=== PATIENT | female | born 1970 | race Caucasian/White ===

== ENCOUNTER 2019-10-17 08:12 | Outpatient (CLI) | payer OTHER, SELFPAY ==
--- NOTE | ~2019-10-17 | MM_ITS ---
EXAMINATION: MM screening [facility] BI w tre HISTORY: Screening mammogram TECHNIQUE: Craniocaudal and mediolateral oblique 3-D tomosynthesis images were obtained and synthetic 2-D images were generated. CAD analysis was submitted and interpreted. COMPARISON: 06/26/2014, 09/11/2012, 07/21/2010 BREAST PARENCHYMAL COMPOSITION: There are scattered areas of fibroglandular density. FINDINGS: There is no evidence of suspicious mass, calcification, or architectural distortion to sugg est malignancy in either breast. There has been no suspicious interval change. IMPRESSION: 1. No mammographic evidence of malignancy. 2. Recommend routine screening mammography in one year. BI-RADS Category 1: Negative Reviewed, dictated and finalized at location A.
== END 2019-10-17 08:13 | disposition home or self-care (01) ==
PROVIDERS: PCP Family Medicine; Visit Provider Family Medicine
DX: Z12.31 Encounter for screening mammogram for malignant neoplasm of breast (principal)
CPT/HCPCS: 77063; 77067

== ENCOUNTER 2020-07-16 08:47 | Outpatient (CLI) | payer OTHER, SELFPAY ==
[2020-07-16 09:05] LABS: Basophils Absolute Auto 0.04 K/mm3 (0.00-0.10); Basophils Percent Auto 0.7 % (0.0-1.0); Eosinophils Absolute Auto 0.09 K/mm3 (0.02-0.50); Eosinophils Percent Auto 1.5 % (1.0-6.0); Hematocrit 38.3 % (35.0-49.0); Immature Granulocyte Absolute 0.02 K/mm3 (0.00-0.00); Immature Granulocyte Percent A 0.3 % (0.0-0.0); Lymphocytes Absolute Auto 1.14 K/mm3 (1.10-4.50); Lymphocytes Percent Auto 18.9 % (18.0-42.0); Mean Corpuscular HGB Conc 31.3 g/dL (32.0-36.0); Mean Corpuscular Hemoglobin 29.3 pg (27.0-31.0); Mean Corpuscular Volume 93.6 fL (78.0-102.0); Mean Platelet Volume 10.4 fl (9.2-11.8); Neutrophils Absolute Auto 4.4 K/mm3 (1.7-7.2); Neutrophils Percent Auto 73.6 % (50.0-70.0); Platelet Count Result 271 K/mm3 (150-420); Red Blood Count 4.09 M/mm3 (4.20-5.40); Red Cell Distribution Width 13.6 % (11.6-14.4)
[2020-07-16 09:14] LABS: Add Urine Microscopic? NO; Appearance Urine Clear (Clear); Bilirubin Urine Negative (Negative); Blood Urine Negative (Negative); Color Urine Yellow (Yellow); Glucose Urine UA Negative (Negative); Ketones Urine Negative (Negative); Leukocyte Esterase Ur Negative (Negative); Nitrate Urine Negative (Negative); Protein Urine Negative (Negative); Urobilinogen Urine 0.2 mg/dL (0.2-1.0)
[2020-07-16 09:34] LABS: Hemoglobin A1C 5.7 % (<5.7)
[2020-07-16 09:51] LABS: Alanine Aminotransferase 15 U/L (14-59); Albumin Level 3.4 g/dL (3.4-5.0); Alkaline Phosphatase 129 U/L (46-116); Anion Gap 12 mmol/L (8-16); Aspartate Amino Transferase 11 U/L (15-37); Bilirubin,Total 0.4 mg/dL (0.00-1.00); Blood Urea Nitrogen 11 mg/dL (7-18); Calcium 8.8 mg/dL (8.5-10.1); Carbon Dioxide 25 mmol/L (21-32); Chloride 104 mmol/L (98-108); Cholesterol 157 mg/dL (0-200); Estimated Glomerular Filt Rate > 60; Glucose 110 mg/dL (70-99); HDL Direct 42 mg/dL (40-60); LDL Cholesterol Calculated 90 mg/dL (<130); Osmolality Calculated 292 mOsm/kg (285-295); Sodium 141 mmol/L (136-145); Total Protein 7.4 g/dL (6.4-8.2); Triglycerides 124 mg/dL (0-150)
[2020-07-21 11:18] LABS: Complement C3 171 mg/dL (83-193)
[2020-07-22 12:42] LABS: Complement Total CH50 >60 U/mL (31-60)
== END 2020-07-16 08:48 | disposition home or self-care (01) ==
LOC: CHSLAB 08:50
PROVIDERS: PCP Nurse Practitioner Psychiatric/Mental Health; Visit Provider Internal Medicine Rheumatology
DX: E03.9 Hypothyroidism, unspecified (principal); E66.9 Obesity, unspecified; E78.5 Hyperlipidemia, unspecified; Z79.899 Other long term (current) drug therapy
CPT/HCPCS: 36415; 80053; 80061; 81003; 83036; 84443; 85025; 86160; 86162

== ENCOUNTER 2020-11-09 10:26 | Outpatient (CLI) | payer OTHER, SELFPAY ==
--- NOTE | ~2020-11-09 | XR_ITS ---
EXAMINATION: XR chest 2V DATE: 11/09/2020 11:17 INDICATION: Multiple syncopal episodes. TECHNIQUE: frontal and lateral views of the chest were obtained. COMPARISON: None FINDINGS: The lungs are clear with no focal airspace opacities, pulmonary edema, pleural effusion or pneumothor ax. The cardiomediastinal silhouette is normal. Visualized bones and soft tissues are unremarkable. IMPRESSION: 1. No acute cardiopulmonary disease. Reviewed, dictated and finalized at location B.
--- NOTE | ~2020-11-09 | XR_ITS ---
EXAMINATION: XR ankle LT min 3V, XR foot LT min 3V DATE: 11/09/2020 11:17 INDICATION: Lateral left ankle pain and point tenderness at the base of the great toe post fall TECHNIQUE: 1. Anteroposterior, mortise, additional oblique and lateral view of the left ankle were obtained. 2. Dorsoplantar, two oblique and lateral views of the left foot were obtained. COMPARISON: None. FINDINGS: Left ankle: One cortical width posterolateral displacement of a spiral fracture of the distal metadiaphyseal frac ture of the left fibula. No other fracture at the left ankle. Alignment remains near-anatomic with co ngruent ankle mortise. Joint spaces are relatively preserved. Soft tissue swelling about the lateral aspect of the left ankle. Small plantar calcaneal spur. Left foot: Nondisplaced intra-articular fracture at the medial base of the left first proximal phalanx. Alignmen t remains essentially anatomic. No significant fracture gap or incongruity at the articular surface. No other fractures identified. Joint spaces are relatively preserved. IMPRESSION: 1. Minimally displaced spiral fracture of the distal left fibular metadiaphysis. 2. Nondisplaced intra-articular fracture at the medial base of the left first proximal phalanx. Reviewed, dictated and finalized at location B. IMPRESSION: 1. Minimally displaced spiral fracture of the distal left fibular metadiaphysis . 2. Nondisplaced intra-articular fracture at the medial base of the left first p roximal phalanx.
[2020-11-09 10:48] LABS: Basophils Absolute Auto 0.02 K/mm3 (0.00-0.10); Basophils Percent Auto 0.3 % (0.0-1.0); Eosinophils Absolute Auto 0.05 K/mm3 (0.02-0.50); Eosinophils Percent Auto 0.7 % (1.0-6.0); Hematocrit 38.4 % (35.0-49.0); Hemoglobin 12.5 g/dL (12.0-15.0); Immature Granulocyte Absolute 0.03 K/mm3 (0.00-0.00); Immature Granulocyte Percent A 0.4 % (0.0-0.0); Lymphocytes Absolute Auto 1.39 K/mm3 (1.10-4.50); Lymphocytes Percent Auto 20.6 % (18.0-42.0); Mean Corpuscular HGB Conc 32.6 g/dL (32.0-36.0); Mean Corpuscular Hemoglobin 30.3 pg (27.0-31.0); Mean Platelet Volume 10.5 fl (9.2-11.8); Monocytes Absolute Auto 0.47 K/mm3 (0.10-0.90); Neutrophils Absolute Auto 4.8 K/mm3 (1.7-7.2); Platelet Count Result 240 K/mm3 (150-420); Red Blood Count 4.13 M/mm3 (4.20-5.40); Red Cell Distribution Width 14.3 % (11.6-14.4); White Blood Count 6.8 K/mm3 (4.8-10.8)
--- NOTE | 2020-11-09 11:00 | ECG_ITS ---
Measurements Intervals [place] Rate: 66 P: 63 NE: 164 QRS: 68 QRSD: 96 T: 55 QT: 392 QTc: 412 Interpretive Statements SINUS RHYTHM LOW QRS VOLTAGE IN PRECORDIAL LEADS BORDERLINE R WAVE PROGRESSION, ANTERIOR LEADS BORDERLINE T WAVE ABNORMALITY- ANTERIOR LEADS BORDERLINE ECG Electronically Signed On 11-09-2020 11:37:29 CDT by Jr León D.O.
[2020-11-09 12:01] LABS: Alanine Aminotransferase 23 U/L (14-59); Albumin Level 3.5 g/dL (3.4-5.0); Alkaline Phosphatase 103 U/L (46-116); Anion Gap 9 mmol/L (8-16); Aspartate Amino Transferase 14 U/L (15-37); Bilirubin,Total 0.6 mg/dL (0.00-1.00); Blood Urea Nitrogen 8 mg/dL (7-18); Carbon Dioxide 28 mmol/L (21-32); Chloride 102 mmol/L (98-108); Estimated Glomerular Filt Rate > 60; Glucose 105 mg/dL (70-99); Osmolality Calculated 286 mOsm/kg (285-295); Potassium 3.8 mmol/L (3.5-5.1); Sodium 139 mmol/L (136-145); Thyroid Stimulating Hormone 4.61 uIU/mL (0.36-3.74); Total Protein 7.2 g/dL (6.4-8.2)
== END 2020-11-09 10:27 | disposition home or self-care (01) ==
LOC: CHSLAB 10:36
PROVIDERS: PCP Family Medicine; Visit Provider Nurse Practitioner Psychiatric/Mental Health
DX: R55 Syncope and collapse (principal)
CPT/HCPCS: 36415; 71046; 73610; 73630; 80053; 84443; 85025; 93005

== ENCOUNTER 2021-01-18 09:04 | Outpatient (RCR) | payer OTHER, SELFPAY ==
--- NOTE | 2021-01-18 10:17 | PTOPEVAL ---
Thank you for referring Babs Sprague to [facility].? The patient is scheduled to be seen for therapy? ____x/week for ___ weeks. Please review, sign, date and return this plan of care ANGELIA. I agree with and certify that the following plan of care is medically necessary. Referring Physician Date Admitting Provider: Attending Provider: Eliz Barrera, BLOCK LAYER Referring Provider: *PT Outpatient Evaluation Start: 01/18/21 09:07 Freq: Status: Active Protocol: Document 01/18/21 09:07 ACR (Rec: 01/18/21 10:17 ACR [id number]) Therapy Assessment Status Assessment Status Assessment Status Evaluation Evaluation Information Problem Diagnosis L fibula fracture Onset 11/08/20 Additional Evaluation Detail 48% functionally declined Subjective Information Patient states on easter Query Text:As Reported By Patient/ monday, she stood up and Family started to feel sick when she passed out, when she got back up, she passed out again and broke her foot. She believes she twisted and broke her foot because she has a spiral fracture. She wore a cast for 6 weeks, was in a boot for 1 week, and is now in an ankle brace. Patient states that walking, pivoting, standing, driving are all the most difficult for her. She states that she is going one step at a time instead of reciprocating feet. Patient states the pain is waking her up at night. Prior Level of Function Activity Level (Last 3 Months) Occupation homemaker Hand Dominance Right Activity of Daily Living Ability Independent Indoor/Home Mobility Independent Community Mobility Independent Stairs Ability Independent Functional Cognition (Planning, Shopping Independent , Taking Medications) Cooking Yes Cleaning Yes Laundry Yes Shopping Yes Driving Yes Pain Assessment Timing of Pain Assessment Timing of Pain Assessment Assessment Pain Scale Pain Scale Used Numeric (1 - 10) Self Report Pain Assessment Left Ankle(s) Reported Pain Level 3 Greatest Pain Intensity 8 Pain Score Pain Score
--- NOTE | 2021-01-18 10:58 | PTOPEVAL ---
Thank you for referring Babs Sprague to [facility].? The patient is scheduled to be seen for therapy? ____x/week for ___ weeks. Please review, sign, date and return this plan of care ANGELIA. I agree with and certify that the following plan of care is medically necessary. Referring Physician Date Admitting Provider: Attending Provider: Eliz Barrera, OPERATIONS VICE PRESIDENT Referring Provider: *PT Outpatient Evaluation Start: 01/18/21 09:07 Freq: Status: Active Protocol: Document 01/18/21 09:07 ACR (Rec: 01/18/21 10:17 ACR [id number]) Therapy Assessment Status Assessment Status Assessment Status Evaluation Evaluation Information Problem Diagnosis L fibula fracture Onset 11/08/20 Additional Evaluation Detail 48% functionally declined Subjective Information Patient states on easter Query Text:As Reported By Patient/ monday, she stood up and Family started to feel sick when she passed out, when she got back up, she passed out again and broke her foot. She believes she twisted and broke her foot because she has a spiral fracture. She wore a cast for 6 weeks, was in a boot for 1 week, and is now in an ankle brace. Patient states that walking, pivoting, standing, driving are all the most difficult for her. She states that she is going one step at a time instead of reciprocating feet. Patient states the pain is waking her up at night. Prior Level of Function Activity Level (Last 3 Months) Occupation homemaker Hand Dominance Right Activity of Daily Living Ability Independent Indoor/Home Mobility Independent Community Mobility Independent Stairs Ability Independent Functional Cognition (Planning, Shopping Independent , Taking Medications) Cooking Yes Cleaning Yes Laundry Yes Shopping Yes Driving Yes Pain Assessment Timing of Pain Assessment Timing of Pain Assessment Assessment Pain Scale Pain Scale Used Numeric (1 - 10) Self Report Pain Assessment Left Ankle(s) Reported Pain Level 3 Greatest Pain Intensity 8 Pain Score Pain Score
--- NOTE | 2021-02-22 08:50 | PCPTNOTE ---
Patient is a 50 year old female that participated in physical therapy for 2 visits for a L fibula fracture. The patient is unable to continue at this time and is performing her HEP daily so, would like to be discharged at this time. Please refer to last treatment note for discharge status. Thank you, VERONICA MontañoT
== END 2021-01-22 09:33 | disposition home or self-care (01) ==
LOC: CHSPT 09:04
PROVIDERS: PCP Family Medicine; Visit Provider Nurse Practitioner Family
DX: S82.832D Other fracture of upper and lower end of left fibula, subsequent encounter for closed fracture with routine healing (principal)
CPT/HCPCS: 97110; 97161; 97530

== ENCOUNTER 2021-10-08 09:31 | Outpatient (CLI) | payer OTHER, SELFPAY ==
--- NOTE | ~2021-10-08 | XR_ITS ---
EXAMINATION: XR hand RT min 3V DATE: 10/08/2021 10:11 INDICATION: Right hand pain. TECHNIQUE: 3 views of right hand were obtained. COMPARISON: None. FINDINGS: Bone alignment is normal. No fracture. There is mild osteoarthritis of second metacarpophal angeal joint, third proximal interphalangeal joint, and second distal interphalangeal joint. IMPRESSION: 1. Mild polyarticular osteoarthritis. Reviewed, dictated and finalized at location A. AL CROP DUSTER
--- NOTE | ~2021-10-08 | XR_ITS ---
XR_CERV2-3V_CR DATE: 10/08/2021 10:10 INDICATION: Left cervical radiculopathy. Posterior cervical pain TECHNIQUE: AP, open-mouth, lateral views COMPARISON: None FINDINGS: There is mild reversal of cervical curvature. C1 and C2 are normally aligned and the odontoid process is intact. No fracture or dislocation, locked facet or prevertebral soft tissue swelling is detected. There is moderate degenerative disc disease and mild retrolisthesis at C5-6. Remaining cervical inter spaces are relatively preserved. IMPRESSION: Mild reversal of cervical curvature Moderate degenerative disease and mild retrolisthesis at C5-6 Reviewed, dictated and finalized at Location A. Reviewed, dictated and finalized at location A. PAPER INSPECTOR
--- NOTE | ~2021-10-08 | MM_ITS ---
EXAMINATION: MM screening [facility] BI w tre HISTORY: Screening mammogram TECHNIQUE: Craniocaudal and mediolateral oblique 3-D tomosynthesis images were obtained and synthetic 2-D images were generated. CAD analysis was submitted and interpreted. COMPARISON: 10/17/2019, 06/26/2014, 09/11/2012 BREAST PARENCHYMAL COMPOSITION: There are scattered areas of fibroglandular density. FINDINGS: There is no evidence of suspicious mass, calcification, or architectural distortion to sugg est malignancy in either breast. There has been no suspicious interval change. IMPRESSION: 1. No mammographic evidence of malignancy. 2. Recommend routine screening mammography in one year. BI-RADS Category 1: Negative Reviewed, dictated and finalized at location A. WRITER RIBBON WINDER
== END 2021-10-08 09:32 | disposition home or self-care (01) ==
PROVIDERS: PCP Family Medicine; Visit Provider Physician Assistant
DX: Z12.31 Encounter for screening mammogram for malignant neoplasm of breast (principal); M54.12 Radiculopathy, cervical region; M79.641 Pain in right hand
CPT/HCPCS: 72040; 73130; 77063; 77067

== ENCOUNTER 2022-01-03 05:55 | Emergency (ER) | payer OTHER, SELFPAY ==
--- NOTE | ~2022-01-03 | CT_ITS ---
EXAMINATION: CT diagnostic chest wo con DATE: 01/03/2022 07:20 INDICATION: Left chest and shoulder pain for 24 hours TECHNIQUE: Computed tomography (CT) of the chest was performed without intravenous contrast. Automate d exposure control and iterative reconstruction technique were employed. Exam dose: 413.92 mGy-cm to gulshan exam DLP. COMPARISON: 2 view chest FINDINGS: There is minimal discoid atelectasis or scarring at the lingula. No pulmonary infiltrate or consolidation. No pneumothorax. Normal heart size. No hilar or mediastinal mass lesion or lymphadenopathy. Normal morphology of the adrenal glands. Very small sliding hiatal hernia. Included skeletal structures are unremarkable other than degenerative change of the cervical spine, i ncluding degenerative disc disease at C5-C6 in particular and mild degenerative spurring of the thora cic spine.. There is degenerative change at the left acromion clavicular joint. IMPRESSION: Degenerative disc disease at C5-C6 Mild degenerative spurring of the thoracic spine Degenerative change of the left acromioclavicular joint. Very small sliding hiatal hernia Reviewed, dictated and finalized at Location A. Reviewed, dictated and finalized at location A.
--- NOTE | 2022-01-03 06:06 | ECG_ITS ---
Measurements Intervals [place] Rate: 66 P: 58 MA: 175 QRS: 15 QRSD: 98 T: 53 QT: 399 QTc: 420 Interpretive Statements SINUS RHYTHM INCOMPLETE RIGHT BUNDLE BRANCH BLOCK DELAYED PRECORDIAL R/S TRANSITION LOW QRS VOLTAGE IN PRECORDIAL LEADS BORDERLINE T WAVE ABNORMALITY- ANTERIOR LEADS BASELINE WANDER- II, III, V5 BORDERLINE ECG Electronically Signed On 01-03-2022 7:14:59 CDT by Jr León D.O.
[2022-01-03 06:11] VITALS: BP 120/80; PULSE 72; RESP 17; TEMP 36.8; O2SAT 97
[2022-01-03 06:58] LABS: Basophils Absolute Auto 0.02 K/mm3 (0.00-0.10); Basophils Percent Auto 0.3 % (0.0-1.0); Eosinophils Absolute Auto 0.07 K/mm3 (0.02-0.50); Eosinophils Percent Auto 1.2 % (1.0-6.0); Hematocrit 38.1 % (35.0-49.0); Hemoglobin 12.7 g/dL (12.0-15.0); Immature Granulocyte Absolute 0.02 K/mm3 (0.00-0.00); Immature Granulocyte Percent A 0.3 % (0.0-0.0); Lymphocytes Absolute Auto 1.04 K/mm3 (1.10-4.50); Lymphocytes Percent Auto 17.9 % (18.0-42.0); Mean Corpuscular HGB Conc 33.3 g/dL (32.0-36.0); Mean Corpuscular Hemoglobin 31.5 pg (27.0-31.0); Mean Corpuscular Volume 94.5 fL (78.0-102.0); Mean Platelet Volume 10.9 fl (9.2-11.8); Monocytes Absolute Auto 0.39 K/mm3 (0.10-0.90); Monocytes Percent Auto 6.7 % (2.0-11.0); Neutrophils Absolute Auto 4.3 K/mm3 (1.7-7.2); Neutrophils Percent Auto 73.6 % (50.0-70.0); Platelet Count Result 237 K/mm3 (150-420); Red Blood Count 4.03 M/mm3 (4.20-5.40); Red Cell Distribution Width 12.9 % (11.6-14.4); White Blood Count 5.8 K/mm3 (4.8-10.8)
[2022-01-03] MEDS: ASPIRIN 81 MG CHEWABLE TABLET 324 MG PO (07:00)
[2022-01-03] MEDS: ONDANSETRON INJ 4 MG/2 ML VIAL IV PUSH (07:01)
[2022-01-03] MEDS: MORPHINE SULFATE (*CRX) 2 MG/ML INJ IV PUSH (07:01)
[2022-01-03] MEDS: NITROGLYCERIN SL 0.4 MG TABLET SUBLINGUAL (07:02)
--- NOTE | 2022-01-03 07:03 | ED.CHESTPAIN ---
HPI - Chest Pain General Chief Complaint: Chest Pain Stated Complaint: Chest TIghtness Time Seen by Provider: 01/03/22 05:59 Source: patient and RN notes reviewed Mode of arrival: ambulatory Limitations: no limitations History of Present Illness MD complaint: chest pain Onset (ago): hour(s) (24) Timing of current episode: constant Prior episodes: No Onset: during rest Pain location: left chest Pain radiation: left arm, left shoulder and left scapula Severity: mild Pain scale (0-10): 6 Quality: aching, heaviness and dull Relieving factors: nothing Exacerbating factors: exertion Associated symptoms: nausea Treatment prior to arrival: none Risk Factors Coronary artery disease risk factors: smoking history (weed vaping) Related Data Home Medications Medication Instructions Recorded Confirmed atorvastatin 20 mg tablet 20 mg PO DAILY 01/03/22 01/03/22 furosemide 20 mg tablet 20 mg PO DAILY PRN Edema 01/03/22 01/03/22 levothyroxine 100 mcg tablet 100 mcg PO QAM 01/03/22 01/03/22 omeprazole 40 mg capsule,delayed 40 mg PO DAILY 01/03/22 01/03/22 release Allergies Allergy/AdvReac Type Severity Reaction Status Date / Time pilocarpine Allergy Rash Verified 01/03/22 06:25 Review of Systems Review of Systems: All systems reviewed & are unremarkable except as noted in HPI and below PMFSH Past Medical History Medical History Arthritis Chest pain Exam Const: General: cooperative, no acute distress and well groomed Nutritional Appearance: well nourished Orientation/consciousness: patient oriented x3 Limitations: no limitations HENMT: Head: normal to inspection, normocephalic and atraumatic Ears: hearing grossly normal bilaterally, external ears normal, TM's normal bilaterally and EAC's normal General nose exam: Normal external nose present and Normal nares present Face and sinus: normal facial exam and sinuses nontender Mouth: Yes oropharynx normal and Yes moist mucous membranes Teeth and gingiva: dentition normal Throat: posterior oropharynx normal Eyes: General: appearance normal, both eyes and all related structures Visual Westfall: normal visual westfall by confrontation Periorbital: periorbital findings normal Eyelids: eyelids normal Conjunctivae: conjunctivae normal Sclera: sclerae normal Cornea: corneas normal Pupils: Equal, round and reactive pupils present EOM: EOMs intact bilaterally Direct Ophthalmoscopy: normal light reflex and no papilledema Neck: Neck: normal visual inspection, full ROM, no lymphadenopathy and no meningeal signs Chest: Chest palpation & inspection: normal inspection of the chest Resp: Effort & Inspection: normal respiratory effort and able to speak in complete sentences Auscultation: clear to auscultation bilaterally Percussion: other (tender left ant and posterior chest wall. no acute redness or swelling.) Cardio: Jugular venous distension: no JVD Rate: regular rate Rhythm: regular rhythm Peripheral pulses: Peripheral pulses 2+ throughout GI: GI Palp: No abdominal tenderness Auscultation: normal bowel sounds : General: Yes bladder normal to inspection and Yes bladder normal to palpation Back/Spine/Pelvis: Back: no CVA tenderness Cervical Spine: cervical ROM normal Thoracic/Lumbar Spine: thoraco-lumbar ROM normal Skin: General skin exam: normal color and no rashes or lesions noted Neuro: General: patient oriented x3, gait normal, moves all extremities, no meningeal signs, no focal motor deficits, CN's II-XI intact bilaterally and normal sensation to monofilament Cranial nerves: Yes CN's II-XII intact bilaterally, Yes Facial sensation intact/muscles of mastication intact, Yes Intact sense of smell present, Yes Equal, round and reactive pupils present, Yes Normal accommodation reflex present, Yes Bilaterally intact EOM present, Yes Normal facial strength present and Yes Midline tongue present Cognition (Neuro): normal
[2022-01-03 07:19] LABS: Alanine Aminotransferase 31 U/L (14-59); Albumin Level 3.2 g/dL (3.4-5.0); Alkaline Phosphatase 122 U/L (46-116); Anion Gap 8 mmol/L (8-16); Aspartate Amino Transferase 17 U/L (15-37); Bilirubin,Total 0.4 mg/dL (0.00-1.00); Blood Urea Nitrogen 11 mg/dL (7-18); Calcium 8.8 mg/dL (8.5-10.1); Carbon Dioxide 29 mmol/L (21-32); Chloride 103 mmol/L (98-108); Estimated Glomerular Filt Rate > 60; Ethanol < 3 mg/dL (0-6); Glucose 125 mg/dL (70-99); NT Pro B Type Natriuretic Pept 100 pg/mL (0-125); Osmolality Calculated 290 mOsm/kg (285-295); Potassium 3.2 mmol/L (3.5-5.1); Sodium 140 mmol/L (136-145); Total Protein 7.2 g/dL (6.4-8.2); Troponin I 33.7 ng/L (0.00-60.4)
[2022-01-03 07:25] VITALS: BP 113/68; PULSE 65; PULSE 74; RESP 25; O2SAT 98
[2022-01-03 07:30] VITALS: BP 104/63; PULSE 66; RESP 13; O2SAT 96
--- NOTE | 2022-01-03 07:51 | ED.GENADULT ---
HPI - General Adult General Chief complaint: Chest Pain Stated complaint: Chest TIghtness Time Seen by Provider: 01/03/22 05:59 Source: patient and RN notes reviewed Mode of arrival: ambulatory Limitations: no limitations History of Present Illness HPI narrative: Babs is a 51F with a PMH of atorvastatin, GERD hypothyroidism that presented to the ED with chest discomfort. She had an aching pain in her chest that began yesterday morning. It was worse with deep inspiration, coughing and vaping. There was no N/V, lightheadedness, SOB or syncope. It was not worse with activity. It has almost completely resolved at the time of my interview. (Assumed care from Dr. Mcintosh at [id number]) Related Data Home Medications Medication Instructions Recorded Confirmed atorvastatin 20 mg tablet 20 mg PO DAILY 01/03/22 01/03/22 furosemide 20 mg tablet 20 mg PO DAILY PRN Edema 01/03/22 01/03/22 levothyroxine 100 mcg tablet 100 mcg PO QAM 01/03/22 01/03/22 omeprazole 40 mg capsule,delayed 40 mg PO DAILY 01/03/22 01/03/22 release Allergies Allergy/AdvReac Type Severity Reaction Status Date / Time pilocarpine Allergy Rash Verified 01/03/22 06:25 Review of Systems Review of Systems: Please also se Dr. Mcintosh's note for details All systems reviewed & are unremarkable except as noted in HPI and below PMFSH Past Medical History Medical History Arthritis Chest pain Exam Const: Nutritional Appearance: well nourished Orientation/consciousness: patient oriented x3 Limitations: no limitations HENMT: Head: normal to inspection General nose exam: Normal external nose present Eyes: Conjunctivae: conjunctivae normal Pupils: Equal, round and reactive pupils present Chest: Chest palpation & inspection: normal inspection of the chest Resp: Effort & Inspection: normal respiratory effort Cardio: Rate: regular rate Skin: General skin exam: normal color Neuro: General: patient oriented x3 and moves all extremities Extrem: General: normal to inspection Psych: Mental Status: mental status grossly normal Course Course Emergency Course: Assumed care from Dr. Mcintosh at [id number] EXAMINATION: CT diagnostic chest wo con DATE: 01/03/2022 07:20 INDICATION: Left chest and shoulder pain for 24 hours TECHNIQUE: Computed tomography (CT) of the chest was performed without intravenous contrast. Automated exposure control and iterative reconstruction technique were employed. Exam dose:? 413.92 mGy-cm total exam DLP. ? COMPARISON: 2 view chest FINDINGS: There is minimal discoid atelectasis or scarring at the lingula. No pulmonary infiltrate or consolidation. No pneumothorax. Normal heart size. No hilar or mediastinal mass lesion or lymphadenopathy. Normal morphology of the adrenal glands. Very small sliding hiatal hernia. Included skeletal structures are unremarkable other than degenerative change of the cervical spine, including degenerative disc disease at C5-C6 in particular and mild degenerative spurring of the thoracic spine.. There is degenerative change at the left acromion clavicular joint. IMPRESSION:? Degenerative disc disease at C5-C6 Mild degenerative spurring of the thoracic spine Degenerative change of the left acromioclavicular joint. Very small sliding hiatal hernia At the time of discharge discomfort had resolved. Vital Signs Vital signs: Vital Signs Temperature 98.2 F 01/03/22 06:11 Pulse Rate 72 01/03/22 06:11 Respiratory Rate 17 01/03/22 06:11 Blood Pressure 120/80 01/03/22 06:11 Pulse Oximetry 97 01/03/22 06:11 Oxygen Delivery Room Air 01/03/22 06:11 Temperature 98.2 F 01/03/22 06:11 Pulse Rate 70 01/03/22 08:00 Respiratory Rate 18 01/03/22 08:00 Blood Pressure 104/63 01/03/22 07:30 Pulse Oximetry 96 01/03/22 08:00 Oxygen Delivery Room Air 01/03/22 06:11 Medical Decision Making Vital Signs Vital Signs:
[2022-01-03 07:54] LABS: Add Urine Microscopic? NO; Appearance Urine Clear (Clear); Bilirubin Urine Negative (Negative); Blood Urine Negative (Negative); Color Urine Light Yellow (Yellow); Glucose Urine UA Negative (Negative); Ketones Urine Negative (Negative); Leukocyte Esterase Ur Negative LEU/UL (Negative); Nitrate Urine Negative (Negative); Protein Urine Negative (Negative); Urobilinogen Urine 0.2 mg/dL (0.2-1.0); pH Urine 6.5 (5.0-8.0)
[2022-01-03 08:00] VITALS: PULSE 70; RESP 18; O2SAT 96
[2022-01-03 08:01] LABS: Amphetamine Screen Urine Negative (Negative); Barbiturate Screen Urine Negative (Negative); Benzodiazepines Screen Urine Negative (Negative); Cannabinoid Screen Urine Positive (Negative); Cocaine Screen Urine Negative (Negative); Methadone Screen Urine Negative (Negative); Opiate Screen Urine Positive (Negative); Phencyclidine Screen Urine Negative (Negative)
--- NOTE | 2022-01-03 08:17 | PC.NURSE ---
nurse to nurse report completed with ETIENNE Laguna
[2022-01-03 08:30] VITALS: BP 115/62
[2022-01-03 08:40] VITALS: BP 115/62; PULSE 61; RESP 16; TEMP 36.8; O2SAT 97
== END 2022-01-03 08:40 | disposition home or self-care (01) ==
PROVIDERS: Emergency Provider Emergency Medicine; PCP Family Medicine
DX: M94.0 Chondrocostal junction syndrome [Tietze] (principal)
CPT/HCPCS: 36415; 71250; 80053; 80307; 81003; 83880; 84484; 85025; 93005; 96374; 96375; 99284; A9270; J2270; J2405

== ENCOUNTER 2022-10-21 08:21 | Outpatient (CLI) | payer OTHER, SELFPAY ==
--- NOTE | ~2022-10-21 | MM_ITS ---
EXAMINATION: MM screening [facility] BI w tre HISTORY: Screening mammogram TECHNIQUE: Craniocaudal and mediolateral oblique 3-D tomosynthesis images were obtained and synthetic 2-D images were generated. CAD analysis was submitted and interpreted. COMPARISON: 10/2021, 10/17/2019, 06/26/2014 bilateral screening mammogram examinations BREAST PARENCHYMAL COMPOSITION: There are scattered areas of fibroglandular density. FINDINGS: There is no evidence of suspicious mass, calcification, or architectural distortion to sugg est malignancy in either breast. There has been no suspicious interval change. IMPRESSION: 1. No mammographic evidence of malignancy. 2. Recommend routine screening mammography in one year. BI-RADS Category 1: Negative Reviewed, dictated and finalized at location A.
== END 2022-10-21 08:22 | disposition home or self-care (01) ==
LOC: CHSIMG 08:22
PROVIDERS: PCP Family Medicine; Visit Provider Family Medicine
DX: Z12.31 Encounter for screening mammogram for malignant neoplasm of breast (principal)
CPT/HCPCS: 77063; 77067

== ENCOUNTER 2023-02-13 10:16 | Outpatient (CLI) | payer OTHER, SELFPAY ==
--- NOTE | ~2023-02-13 | US_ITS ---
EXAMINATION: US thyroid DATE: 02/13/2023 12:45 INDICATION: Thyroid nodule. Sjogren-Soco syndrome. TECHNIQUE: Multiple ultrasound images of the thyroid were obtained. COMPARISON: None. FINDINGS: The right thyroid lobe measures 3.7 x 0.9 x 1.6 cm. The left thyroid lobe measures 3.0 x 1.0 x 1.3 c m. The thyroid demonstrates heterogeneous echogenicity. In the left thyroid lobe, there is a 6 mm so lid, hypoechoic, wider than tall nodule with smooth margin without echogenic foci (TI-RADS TR4). Vasc ularity is normal. IMPRESSION: 1. Heterogeneous thyroid, likely chronic lymphocytic (Nithin) thyroiditis. 2. Small thyroid nodule, likely not clinically significant. No follow-up is needed. Reviewed, dictated and finalized at location E. IMPRESSION: 1. Heterogeneous thyroid, likely chronic lymphocytic (Nithin) thyroiditis. 2. Small thyroid nodule, likely not clinically significant. No follow-up is nee ded.
== END 2023-02-13 10:17 | disposition home or self-care (01) ==
LOC: CHSIMG 10:18
PROVIDERS: PCP Family Medicine; Visit Provider Registered Nurse
DX: Q87.19 Other congenital malformation syndromes predominantly associated with short stature (principal); E04.1 Nontoxic single thyroid nodule
CPT/HCPCS: 76536

== ENCOUNTER 2023-09-11 11:06 | Outpatient (CLI) | payer OTHER, SELFPAY ==
--- NOTE | ~2023-09-11 | XR_ITS ---
XR hip LT min 2V DATE: 09/11/2023 11:30 INDICATION: Burning sensation, pain while standing for 3 days TECHNIQUE: AP and lateral views COMPARISON: None FINDINGS: Normal alignment at the pubic symphysis and sacroiliac joints. Preservation of left hip elisha nt space. No fracture, dislocation, avascular necrosis or bone destruction of the left hip. IMPRESSION: No significant abnormality Reviewed, dictated and finalized at location B. FIC MAINTENANCE SUPERVISOR IMPRESSION: No significant abnormality
--- NOTE | ~2023-09-11 | XR_ITS ---
XR lumbar spine 2-3V DATE: 09/11/2023 11:30 INDICATION: Burning sensation while standing for 3 days TECHNIQUE: AP, lateral, coned lateral lumbosacral views COMPARISON: None FINDINGS: Normal alignment of the lumbar spine. There is minimal degenerative spurring at L2-3, L3-4 and L4-5 but lumbar and lumbosacral interspaces are relatively preserved. Included lower thoracic and lumbar pedicles are intact. No fracture or bone destruction or spondyloli sthesis. The sacrum joints are intact. IMPRESSION: Minimal degenerative spurring Reviewed, dictated and finalized at location B. OPHONE OPERATOR
== END 2023-09-11 11:07 | disposition home or self-care (01) ==
LOC: CHSIMG 11:08
PROVIDERS: PCP Family Medicine; Visit Provider Registered Nurse
DX: M25.552 Pain in left hip (principal); M85.88 Other specified disorders of bone density and structure, other site
CPT/HCPCS: 72100; 73502

== ENCOUNTER 2023-09-15 14:16 | Outpatient (RCR) | payer OTHER, SELFPAY ==
--- NOTE | 2023-09-15 15:39 | OPREHPOC ---
Outpatient Therapy Plan of Care This is a Multidisciplinary Plan of Care that may contain components documented by all disciplines (PT, OT, and ST.) PT Problem 1 PT Problem #1 Knowledge Deficit PT Goal 1 Goal 1. independent and compliant with HEP Target Visit 6 PT Problem 2 PT Problem #2 Pain PT Goal 1 Goal 1. decrease pain at worst to 4/10 in the lower back 2. centralization of all L LE symptoms to not passed the buttock Target Visit 12 PT Problem 3 PT Problem #3 Impaired Range of Motion PT Goal 1 Goal 1. improve active lumbar side bending to 40 degrees bilat without pain 2. improve active lumbar extension to 30 degrees without pain Target Visit 12 PT Problem 4 PT Problem #4 Impaired Strength PT Goal 1 Goal 1. improve bilateral hip strength to 4+/5 or better overall 2. improve L knee strength to 5/5 Target Visit 12 PT Problem 5 PT Problem #5 Impaired Functional Mobil PT Goal 1 Goal 1. oswestry to display 30% or less functional deficits 2. patient to squat and lift 20lbs from floor x10 reps to improve home care abilities 3. patient to complete 1000ft ambulation in 6 minute walk test without rest Target Visit 12
--- NOTE | 2023-09-15 15:39 | PTOPEVAL1 ---
Assessment and note entered by JT File, PT Evaluation Information Assessment Status Evaluation Diagnosis lumbar radiculopathy Onset 09/08/23 Subjective Information patient reports she has been having pain in the lower back, pain in the L LE, and pain in the L hip. she reports she has pain that shoots down the front of the leg. she reports it goes down to the L knee. she reports it does go to the groin. she reports she has had xrays of both the L hip and the lower back. she reports the hip was fine, but she has bone spurring on the lower back. she reports she has burning and tingling in the L hip. she reports she has also just recently noticed a small patch of numbness on the front of the L thigh. she reports her symptoms are increased with standing and walking. she reports sitting too long will also increase pain. Reported Pain Level Pain Score 4: Self Report Assessment PT Clinical Summary mrs. reyes is a 53 yo woman who presents to skilled PT services for evaluation and treatment of lower back and L LE pain. she presents today with signs and symptoms of lumbar radiculopathy, especially along the femoral nerve distribution of the L LE. she presents with pain in lower back with lumbar extension, hip weakness, core weakness , and decreased functional activity performance. continued skilled PT is indicated to improve her objective/functional deficits and progress towards a return to her prior level functional activity performance/quality of life. Plan of Care Interventions Electrical Stimulation,Hot Pack/Cold Pack,Manual Therapy,Mechanical Traction,Neuro Re-education, Patient/Caregiver Educati,Therapeutic Activities, Self-Care/Home Management PT Services Indicated Yes Treatment Frequency and 3x weekly for 12 visits Duration These treatments will address the objective and functional deficits as defined above. The patient will be advanced safely and appropriately in order for the patient to progress towards his/her prior level of function. Additional exercises will be introduced and as well as a comprehensive home exercise program upon discharge, if needed, ?to ensure carryover of functional gains achieved in the clinic. This treatment plan has been reviewed and agreement upon by the patient.
--- NOTE | 2023-09-22 12:58 | PCPTNOTE ---
Patient cancelled session due to weather.
--- NOTE | 2023-09-25 13:20 | PCPTNOTE ---
patient called to cancel and would like to cancel all appts due to feeling well
== END 2023-09-21 20:00 | disposition home or self-care (01) ==
LOC: CHSPT 14:16
PROVIDERS: PCP Family Medicine; Visit Provider Family Medicine
DX: M54.16 Radiculopathy, lumbar region (principal)
CPT/HCPCS: 97014; 97110; 97161; G0283

== ENCOUNTER 2023-11-14 12:28 | Outpatient (CLI) | payer OTHER, SELFPAY ==
--- NOTE | ~2023-11-14 | MM_ITS ---
EXAMINATION: MM screening [facility] BI w tre HISTORY: Screening mammogram TECHNIQUE: Craniocaudal and mediolateral oblique 3-D tomosynthesis images were obtained and synthetic 2-D images were generated. CAD analysis was submitted and interpreted. COMPARISON: 10/21/2022, 10/08/2021 bilateral screening mammogram examinations BREAST PARENCHYMAL COMPOSITION: There are scattered areas of fibroglandular density. FINDINGS: There is no evidence of suspicious mass, calcification, or architectural distortion to sugg est malignancy in either breast. There has been no suspicious interval change. IMPRESSION: 1. No mammographic evidence of malignancy. 2. Recommend routine screening mammography in one year. BI-RADS Category 1: Negative Reviewed, dictated and finalized at location A.
== END 2023-11-14 12:29 | disposition home or self-care (01) ==
LOC: CHSIMG 12:31
PROVIDERS: PCP Family Medicine; Visit Provider Family Medicine
DX: Z12.31 Encounter for screening mammogram for malignant neoplasm of breast (principal)
CPT/HCPCS: 77063; 77067

== ENCOUNTER 2025-01-23 05:14 | Emergency (ER) | payer OTHER, SELFPAY ==
--- NOTE | ~2025-01-23 | XR_ITS ---
Right Hand Technique: PA, oblique, and lateral views were obtained. Clinical History: Pain Findings: No acute fracture or dislocation is seen. Osseous alignment is anatomic. Joint spaces are p reserved. Soft tissues are unremarkable. Impression: Unremarkable right hand. Reviewed, dictated and finalized at location M. Impression: Unremarkable right hand.
[2025-01-23 05:18] VITALS: BP 122/75; PULSE 58; RESP 18; TEMP 35.9; O2SAT 98
--- NOTE | 2025-01-23 05:34 | ED.UPPEXIN ---
HPI - Extremity Injury (Upper) General Chief Complaint: Extremity Injury, Upper Stated Complaint: wrist/hand pain Source: patient Mode of arrival: ambulatory Limitations: no limitations History of Present Illness HPI narrative: 54-year-old female with arthritis was cleaning her pool yesterday and today she developed pain in her right hand. This is made worse by movement of her hand. No history of trauma. No hand swelling. complaint: injury to: right and hand Onset (ago): hour(s) ( 2 hours) Other Extremity Injury: Right: hand Other injuries: none Handedness: right Severity: moderate Relieving factors: immobilization Exacerbating factors: movement of extremity Associated symptoms: denies other symptoms Treatments prior to arrival: cold therapy Related Data Home Medications ?Medication ?Instructions ?Recorded ?Confirmed ?Last Taken ?Type atorvastatin 20 mg tablet 20 mg PO DAILY 01/03/22 09/07/22 Unknown History levothyroxine 100 mcg tablet 100 mcg PO QAM 01/03/22 09/07/22 Unknown History Allergies Allergy/AdvReac Type Severity Reaction Status Date / Time pilocarpine Allergy Rash Verified 01/23/25 05:21 Review of Systems Review of Systems: All systems reviewed & are unremarkable except as noted in HPI and below PMFSH Past Medical History Medical History Chest pain Arthritis Social History Social History Smoking status: Unknown if ever smoked Exam Const: General: no acute distress Orientation/consciousness: patient oriented x3 HENMT: Head: normal to inspection Ears: external ears normal Face/Nose/Sinus: Normal external nose present Face and sinus: normal facial exam Mouth: Yes Normal oral and palatal mucosa present Throat: posterior oropharynx normal Eyes: Conjunctivae: conjunctivae normal Pupils: Equal, round and reactive pupils present EOM: EOMs intact bilaterally Direct Ophthalmoscopy: no photophobia Neck: Neck: normal visual inspection, no lymphadenopathy and no meningeal signs Chest: Chest palpation & inspection: normal inspection of the chest Resp: Effort & Inspection: normal respiratory effort Auscultation: clear to auscultation bilaterally Cardio: Rate: regular rate Rhythm: regular rhythm GI: GI Palp: Yes Soft to palpation Auscultation: normal bowel sounds : General: Yes no CVA tenderness Back/Spine/Pelvis: Back: no CVA tenderness Skin: General skin exam: normal color Rashes: no rashes Wounds: no wounds Neuro: General: patient oriented x3, moves all extremities, no meningeal signs, no focal motor deficits and CN's II-XI intact bilaterally Cranial nerves: Yes Nystagmus not present Speech: normal speech Extrem: General: normal to inspection Other: right hand-- no swelling. No focal tenderness. Psych: Mental Status: mental status grossly normal Affect: normal affect Attitude: cooperative Course Course Emergency Course: right hand pain-- x-ray does not show any fracture/dislocation Vital Signs Vital signs: Vital Signs Temperature 35.9 C L 01/23/25 05:18 Pulse Rate 58 L 01/23/25 05:18 Respiratory Rate 18 01/23/25 05:18 Blood Pressure 122/75 01/23/25 05:18 Pulse Oximetry 98 01/23/25 05:18 Oxygen Delivery Room Air 01/23/25 05:18 Temperature 35.9 C L 01/23/25 05:18 Pulse Rate 58 L 01/23/25 05:18 Respiratory Rate 18 01/23/25 05:18 Blood Pressure 122/75 01/23/25 05:18 Pulse Oximetry 98 01/23/25 05:18 Oxygen Delivery Room Air 01/23/25 05:18 MDM - Extremity Injury (Upper) MDM Narrative Medical decision making narrative: right hand pain Differential Diagnosis Differential diagnosis: Likely sprain and strain of wrist and fracture of hand Discharge Plan Discharge Clinical Impression: Hand pain, right Patient Disposition: Home Condition: Stable Instructions: Antibiotic Form, Musculoskeletal Pain (ED) Patient Language: Faroese Prescriptions: No Action atorvastatin 20 mg tablet 20 mg PO DAILY levothyroxine 100 mcg tablet 100 mcg PO QAM Follow-up/Referrals: Preeti,MD Ken [Primary Care Provider] - Time of Disposition: :22
[2025-01-23 06:28] VITALS: BP 120/74; PULSE 60; RESP 16; TEMP 36.4; O2SAT 100
== END 2025-01-23 06:31 | disposition home or self-care (01) ==
PROVIDERS: Emergency Provider Internal Medicine Critical Care Medicine; PCP Family Medicine
DX: M79.641 Pain in right hand (principal)
CPT/HCPCS: 73130; 99283

== ENCOUNTER 2025-05-29 11:49 | Outpatient (CLI) | payer OTHER, SELFPAY ==
--- NOTE | ~2025-05-29 | MM_ITS ---
EXAMINATION: MM screening [facility] BI w tre HISTORY: Screening TECHNIQUE: Craniocaudal and mediolateral oblique 3-D tomosynthesis images were obtained and synthetic 2-D images were generated. CAD analysis was submitted and interpreted. COMPARISON: Comparison to multiple prior studies sequentially, with oldest reviewed study dated 10/17/2019. BREAST PARENCHYMAL COMPOSITION: Not dense: There are scattered areas of fibroglandular density. FINDINGS: There is no evidence of suspicious mass, calcification, or architectural distortion to suggest malignancy in either breast. There has been no suspicious interval change. IMPRESSION: 1. No mammographic evidence of malignancy. 2. Recommend routine screening mammography in one year. BI-RADS Category 1: Negative Reviewed, dictated and finalized at location O.
== END 2025-05-29 11:50 | disposition home or self-care (01) ==
PROVIDERS: PCP Family Medicine; Visit Provider Family Medicine
DX: Z12.31 Encounter for screening mammogram for malignant neoplasm of breast (principal)
CPT/HCPCS: 77063; 77067